=== PATIENT | female | born 1990 | race Caucasian/White ===

== ENCOUNTER 2016-09-15 10:11 | Emergency (ER) | payer BC ==
[~2016-09-15] VITALS: Ht 172.7 cm; Wt 63.6 kg
[~2016-09-15 10:11] MED LIST: PHENERGAN 25 TA25 MG PO
[2016-09-15 10:18] VITALS: TEMP 98.4
[2016-09-15 11:04] LABS: BASO # 0.1 (0.0-0.2); BASO % 1.2 % (0.0-2.0); EOS # 0.1 (0.0-0.7); EOS % 1.5 % (0-4.0); GRAN # 1.9 (1.4-6.5); GRAN % 46.9 % (42.2-75.2); HEMATOCRIT 38.8 % (37.0-47.0); HEMOGLOBIN 12.5 g/dl (12.5-16.0); LYMPH # 1.6 (1.2-3.4); LYMPH % 39.8 % (20.0-51.0); MEAN CELL VOLUME 88 fl (80.0-100.0); MEAN CORPUSCULAR HEMOGLOBIN 29 pg (27.0-31.0); MEAN CORPUSCULAR HGB CONC 32 g/dl (33.0-37.0); MEAN PLATELET VOLUME 10.8 fl (7.4-10.4); MONO # 0.4 (0.1-0.6); MONO % 10.4 % (1.7-9.3); PLATELET COUNT 184 K/mm3 (130-400); RED BLOOD COUNT 4.39 M/mm3 (4.10-5.30); REDCELL DISTRIBUTION WIDTH-CV 12.3 % (11.5-14.5); WHITE BLOOD COUNT 4.1 K/mm3 (4.8-10.8)
[2016-09-15 11:07] LABS: PH 6 (5-8); SQUAMOUS EPITHELIAL 0-2 /hpf; URINE APPEARANCE Clear; URINE BACTERIA None Seen /hpf; URINE BILIRUBIN Negative (NEGATIVE); URINE BLOOD Negative (NEGATIVE); URINE COLOR Straw; URINE GLUCOSE Negative (NEGATIVE); URINE KETONE Negative (NEGATIVE); URINE RBC None Seen /hpf; URINE UROBILINOGEN Negative (NEGATIVE); URINE WBC 0-2 /hpf
[2016-09-15 11:15] LABS: ADJUSTED CALCIUM 9.2 mg/dL (8.4-10.2); ALANINE AMINOTRANSFERASE 38 U/L (9-52); ALBUMIN 4.2 gm/dL (3.5-5.0); ALKALINE PHOSPHATASE 45 U/L (50-136); ANION GAP 12 mmol/L (7-16); BILIRUBIN,TOTAL 0.7 mg/dL (0.0-1.0); BLOOD UREA NITROGEN 10 mg/dL (7-17); CALCIUM 9.4 mg/dL (8.4-10.2); CARBON DIOXIDE 22 mmol/L (22-30); CHLORIDE 103 mmol/L (98-107); CREATININE, serum 1.01 mg/dL (0.52-1.25); GLUCOSE 89 mg/dL (74-106); SODIUM 137 mmol/L (137-145); TOTAL PROTEIN 7.7 gm/dL (6.4-8.2)
[2016-09-15 11:20] LABS: C-REACTIVE PROTEIN < 0.5 mg/dL (0.0-0.9)
[2016-09-15 12:02] VITALS: BP 118/67; PULSE 93
== END 2016-09-15 12:07 | disposition home or self-care (01) ==
LOC: COL.ER 10:11
PROVIDERS: Physician Assistant
DX: R07.89 Other chest pain (principal); M79.1 Myalgia; M79.661 Pain in right lower leg
CPT/HCPCS: J7030

== ENCOUNTER → 2018-09-08 | Outpatient (CLI) | payer BC | LOC: COL.VAS 12:30 | DX: O99.112 Other diseases of the blood and blood-forming organs and certain disorders involving the immune mechanism complicating pregnancy, second trimester (principal); D68.61 Antiphospholipid syndrome; Z3A.17 17 weeks gestation of pregnancy ==

== ENCOUNTER 2019-01-19 15:37 | Outpatient (CLI) | payer BC ==
[~2019-01-19] VITALS: Ht 20.3 cm; Wt 88.2 kg
--- NOTE | 2019-01-19 15:38 | NUR ---
Pt arrives on unit ambulatory for possible SROM. States leaking of fluid at noon with white discharge. Denies vaginal bleeding and contractions. Reports GFM. Changed into clean gown. EFM and toco applied. VSS. Orders for amniosure, amniotest and SVE per Dr. Aguilar. Amniotest negative. SVE per this RN difficult per pt tolerance. Cervix posterior with no LOF noted on glove. Admission assessment completed. Pt updated on POC. Bed locked in low position. Call light within reach. No questions or concerns at this time.
[2019-01-19] MEDS ORDERED: ASPIRIN E.C. 8181 MG PO (15:55)
[2019-01-19] MEDS ORDERED: PROFERRIN ES12 MG PO (15:56)
[2019-01-19] MEDS ORDERED: VITAMIN C500 MG PO (15:56)
[2019-01-19 16:44] VITALS: BP 123/66; PULSE 80; TEMP 98.1
--- NOTE | 2019-01-19 16:45 | NUR ---
Amniosure negative. See physician notification. Pt taken off monitors. Discharge instruction given. No questions or concerns at this time. Leaves unit ambulatory.
== END 2019-01-19 16:45 | disposition home or self-care (01) ==
LOC: LDRO 15:37 → LDR 15:37 → LDRO 16:45
DX: Z34.03 Encounter for supervision of normal first pregnancy, third trimester (principal); Z3A.36 36 weeks gestation of pregnancy
CPT/HCPCS: OP

== ENCOUNTER 2019-02-02 06:10 | Inpatient (IN) | payer BC ==
[~2019-02-02] VITALS: Ht 172.7 cm; Wt 87.7 kg
[~2019-02-02 06:10] MED LIST changes: +ASPIRIN E.C. 8181 MG PO; +PROFERRIN ES12 MG PO; +VITAMIN C500 MG PO
[2019-02-02 20:10] VITALS: BP 125/70; PULSE 80; TEMP 98.3
[2019-02-02 20:28] VITALS: BP 125/70; TEMP 98.3
--- NOTE | 2019-02-02 20:30 | NUR ---
HERE WITH SPOUSE FOR 2100 CYTOTEC INDUCTION. SHOWN TO LR 6 BY BALL ASSEMBLER CHANGES INTO GOWN
--- NOTE | 2019-02-02 21:10 | NUR ---
PLAN OF CARE DISCUSSED WITH PT AND SPOUSE. PERMITS OBTAINED. EFM ON.
--- NOTE | 2019-02-02 22:05 | NUR ---
50 MCG CYTOTEC PLACED POSTERIOR FORNIX. CX /-3
[2019-02-02 22:10] VITALS: BP 109/57; PULSE 72
[2019-02-02 22:40] VITALS: BP 107/57; PULSE 75; TEMP 98.2
[2019-02-02 22:46] LABS: BASO % 0.5 % (0.0-2.0); EOS # 0.1 (0.0-0.7); EOS % 1.2 % (0-4.0); GRAN # 5.3 (1.4-6.5); GRAN % 61.5 % (42.2-75.2); HEMOGLOBIN 10.6 g/dl (12.5-16.0); LYMPH # 2.3 (1.2-3.4); LYMPH % 26.3 % (20.0-51.0); MEAN CELL VOLUME 89 fl (80.0-100.0); MEAN CORPUSCULAR HEMOGLOBIN 30 pg (27.0-31.0); MEAN CORPUSCULAR HGB CONC 34 g/dl (33.0-37.0); MEAN PLATELET VOLUME 11.1 fl (7.4-10.4); MONO # 0.9 (0.1-0.6); MONO % 10.2 % (1.7-9.3); PLATELET COUNT 185 K/mm3 (130-400); RED BLOOD COUNT 3.56 M/mm3 (4.10-5.30); REDCELL DISTRIBUTION WIDTH-CV 13.3 % (11.5-14.5)
[2019-02-02 22:56] LABS: HEMATOCRIT 31.6 % (37.0-47.0)
[2019-02-02 23:40] VITALS: BP 113/59; PULSE 71; TEMP 98.1
[2019-02-03] VITALS (68 sets, daily range): BP systolic 98–233; BP diastolic 50–86; PULSE 62–99; TEMP 97.8–99
--- NOTE | 2019-02-03 02:46 | NUR ---
UNCOMFORTABLE WITH BACK ACHE AND CRAMPING DURING CTX.CYTOTEC DOSE 2 NOT PLACED SHE IS EUGENIE MORE THAN 3 TIMES IN 10 MIN.PLAN OF CARE DISCUSSED WITH PT
--- NOTE | 2019-02-03 04:58 | NUR ---
FEELING MORE DISCOMFORT. NOT SLEEPING NOW.
--- NOTE | 2019-02-03 06:15 | NUR ---
Report from Ana AKERS to assume care of patient at this time. Per RN report, patient sleeping with at bedside.
--- NOTE | 2019-02-03 07:30 | NUR ---
at bedside. Plan of care discussed with patient and . Vertex position verified with ultrasound. LR and Pitocin infusing per orders, see eMAR. Call light within reach.
--- NOTE | 2019-02-03 08:00 | NUR ---
at bedside. SVE /-3. Plan of care discussed, questions answered. Encouraged to rest. Call light within reach.
--- NOTE | 2019-02-03 10:20 | NUR ---
Patient up to bathroom, voids without difficulty. Patient standing/swaying at edge of bed. Reports more intense cramping and back pain with contractions, denies need for pain intervention at this time. Call light within reach.
--- NOTE | 2019-02-03 11:00 | NUR ---
Patient onto birthing ball. at bedside. Call light within reach.
--- NOTE | 2019-02-03 12:00 | NUR ---
on unit, to bedside. AROM at 1201, moderate amount of clear fluid noted with exam. SVE /-3. Plan of care discussed, questions answered.
--- NOTE | 2019-02-03 12:25 | NUR ---
Patient calls out requesting epidural placement. Will notify Devika GUY. IV bolus started. at bedside, call light within reach.
--- NOTE | 2019-02-03 13:00 | NUR ---
1240: Devika GUY at bedside. Patient sitting up for epidural placement. 1247: Lidocaine. 1257: Epidural Catheter. 1258: Test Dose given by Devika GUY, no adverse reactions noted. Patient repositioned to left tilt. Plan of care discussed. Questions answered.
--- NOTE | 2019-02-03 13:20 | NUR ---
Patient comfortable with epidural. Nelson catheter placed, pale clear yellow urine returned. SVE /-2. Patient repositioned to right tilt with peanut ball in place. Encouraged to rest. Call light within reach.
--- NOTE | 2019-02-03 14:00 | NUR ---
Plan of care discussed. Pitocin off. Call light within reach.
--- NOTE | 2019-02-03 14:15 | NUR ---
Patient repositioned to left tilt. Plan of care discussed, questions answered. Encouraged to rest. Call light within reach.
--- NOTE | 2019-02-03 15:05 | NUR ---
Patient resting upon RN entry to room. SVE 3-4/80/-2. Patient repositioned to right tilt. Encouraged to continue resting Call light within reach.
--- NOTE | 2019-02-03 16:20 | NUR ---
Patient sleeping upon RN entry to room. Denies pain or needs. Repositioned to left tilt with head of bed elevated. Call light within reach.
--- NOTE | 2019-02-03 16:45 | NUR ---
to bedside. SVE unchanged per provider. Patient repositioned to right tilt, head of bed elevated. Plan of care discussed, questions answered. Pitocin increased to 4mu/min. Encouraged to rest. Call light within reach.
--- NOTE | 2019-02-03 17:45 | NUR ---
Patient repositioned to left lateral with right leg in stirrup. Pitocin increased to 10mu/min. Patient denies pain or needs. Call light within reach.
--- NOTE | 2019-02-03 18:20 | NUR ---
Patient repositioned to "kyle" position. Denies pain or needs. Nelson catheter emptied. Encouraged to continue resting. Report to Ana AKERS to assume care of patient at this time.
--- NOTE | 2019-02-03 21:52 | NUR ---
VARIABLE DECELS STARTING WHEN CHANGED TO SITTING UPRIGHT POSITION, HOB DOWN SVE 7/100/0. TO LEFT SIDE.DONTINUES WITH SMOOTH LATE DELS TO 60 BPM. PIT OFF AT 2208. O2 MASK [address] HAJI CALLED TO ROOM FORM DESK AREA TO EVAL.PIT TO REMAIN OFF. 2238 LATE DECEL TO 60 BPM SVE 8/100/0
[2019-02-04] VITALS (29 sets, daily range): BP systolic 104–140; BP diastolic 54–631; PULSE 60–121; TEMP 97.3–99.8
--- NOTE | 2019-02-04 00:40 | NUR ---
THICK ANTERIOR CERVIX PRESENT. CAPUT PALPATED NOW
--- NOTE | 2019-02-04 05:41 | NUR ---
0541 VACUUM APPLIED TO FETUS AFTER DISCUSSION BY DR HAJI WITH PARENTS. USED 13 MINUTES WITH 1 POP OFF. PRESSURE DECREASED BETWEEN PUSHES 0555 FEMALE TO MOTHERS ABDOMEN. DAD CUTS CORD. CORD GASES OBTAINED
--- NOTE | 2019-02-04 06:35 | NUR ---
Rests in bed, alert, holding baby. Denies any pain or discomfort at this time. Fundal check done, ice pack on.
--- NOTE | 2019-02-04 07:20 | NUR ---
Rests in bed, alert. Fundal check done, ice pack on. Perinium swollen. Denies any pain at this time. Baby to nursery so patient can rest. Warm blankets on.
--- NOTE | 2019-02-04 09:00 | NUR ---
To bathroom in wheel chair. States left leg still kind of numb. voids moderate amount of clear yellow urine. Viola-care done and explained. To room 208 via wheel chair. Oriented to room.
[2019-02-05 03:30] VITALS: BP 110/69; PULSE 83; TEMP 97.5
[2019-02-05 06:04] LABS: HEMATOCRIT 27.9 % (37.0-47.0); HEMOGLOBIN 9.5 g/dl (12.5-16.0)
[2019-02-05 07:10] VITALS: BP 122/56; PULSE 80; TEMP 97.6
[2019-02-05 16:00] VITALS: BP 128/47; PULSE 84; TEMP 98.1
--- NOTE | 2019-02-05 18:43 | NUR ---
BEDSIDE REPORT RECIEVED, CARE ASSUMED BY THIS RN.
[2019-02-05 22:01] VITALS: BP 138/74; PULSE 77; TEMP 98.6
[2019-02-06] MEDS ORDERED: MOTRIN 800800 MG/TAB PO (09:31)
[2019-02-06] MEDS ORDERED: PERCOCET 325 MG1 TA2 PO (09:31)
== END 2019-02-06 10:00 | disposition home or self-care (01) | DRG 806 ==
LOC: OB 06:10 → LDR 06:18 → OB 02-04 09:00
PROVIDERS: ADMIT Obstetrics & Gynecology
PROC: 3E0P7GC Introduction of Other Therapeutic Substance into Female Reproductive, Via Natural or Artificial Opening (ICD-10-PCS; 2019-02-03)
PROC: 10D07Z6 Extraction of Products of Conception, Vacuum, Via Natural or Artificial Opening (ICD-10-PCS; principal; 2019-02-04)
PROC: 0KQM0ZZ Repair Perineum Muscle, Open Approach (ICD-10-PCS; 2019-02-04)
PROC: 10907ZC Drainage of Amniotic Fluid, Therapeutic from Products of Conception, Via Natural or Artificial Opening (ICD-10-PCS; 2019-02-04)
DX: O99.12 Other diseases of the blood and blood-forming organs and certain disorders involving the immune mechanism complicating childbirth (principal); D68.61 Antiphospholipid syndrome; Z37.0 Single live birth; O69.1XX0 Labor and delivery complicated by cord around neck, with compression, not applicable or unspecified; O23.593 Infection of other part of genital tract in pregnancy, third trimester; O70.1 Second degree perineal laceration during delivery; O76 Abnormality in fetal heart rate and rhythm complicating labor and delivery; O99.013 Anemia complicating pregnancy, third trimester; D64.9 Anemia, unspecified; Z3A.39 39 weeks gestation of pregnancy
CPT/HCPCS: J2590; J7120

== ENCOUNTER → 2020-06-19 | Outpatient (CLI) | payer BC ==
[~2020-06-19] MED LIST changes: +MOTRIN 800800 MG/TAB PO; +PERCOCET 325 MG1 TA2 PO
== END ==
LOC: ZCOL.LAB 17:03
DX: Z20.828 Contact with and (suspected) exposure to other viral communicable diseases (principal)